=== PATIENT | male | born 1965 ===

== ENCOUNTER 2016-09-10 23:53 | Emergency (ER) | payer MEDICAID ==
[2016-09-11] MEDS ORDERED: Lidocaine 1% w Epi 1:100,000 Inj INJ ONE (00:30)
[2016-09-11] MEDS ORDERED: Bacitracin 500 Units/gm Oint Foilpak UD TOP ONE (00:31)
[2016-09-11] MEDS ORDERED: Lidocaine 2% w Epi 1:100,000 Inj IJ ONE (00:34)
[2016-09-11] MEDS ORDERED: Bacitracin 500 Units/gm Oint Foilpak UD ONE (00:34)
--- NOTE | 2016-09-11 01:58 | C.PDOC ---
History Of Present Illness A 51 y/o male c/o laceration to the right arm that occurred DISMANTLER. Pt notes that he was cleaning where he put his arm in a bag and a piece of glass cut him. Pt denies change in sensation, fever, or any other complaints. No other injury. Time Seen by Provider: 09/11/16 00:06 Chief Complaint (Nursing): Abnormal Skin Integrity History Per: Patient History/Exam Limitations: no limitations Onset/Duration Of Symptoms: Hrs Current Symptoms Are (Timing): Still Present Location Of Injury: Right: Arm (Laceration) Quality Of Symptoms: Painful Severity: Mild Recent travel outside of the [place]: No Additional History Per: Patient Past Medical History Reviewed: Historical Data, Nursing Documentation, Vital Signs Vital Signs: Last Vital Signs Temp 98.1 F 09/11/16 03:01 Pulse 90 09/11/16 03:01 Resp 20 09/11/16 03:01 BP 120/78 09/11/16 03:01 Pulse Ox 96 09/11/16 03:36 - Medical History PMH: HTN Family History: States: Unknown Family Hx - Social History Hx Alcohol Use: No Hx Substance Use: No Review Of Systems Except As Marked, All Systems Reviewed And Found Negative. Constitutional: Negative for: Fever, Chills Gastrointestinal: Negative for: Nausea, Vomiting Skin: Positive for: Lesions (Laceration to the right arm). Negative for: Other (Wound discharge) Neurological: Negative for: Numbness, Other (Change in sensation) Physical Exam - Physical Exam Appears: Well, Non-toxic, No Acute Distress Skin: Warm, Dry, Other (4 cm laceration to the dorsol aspect of the right forearm) Head: Atraumatic, Normacephalic Eye(s): bilateral: Normal Inspection, EOMI Nose: Normal Oral Mucosa: Moist Chest: Symmetrical Respiratory: No Accessory Muscle Use Extremity: Normal ROM, Tenderness, Capillary Refill (< 2 sec), No Swelling Extremity: Bilateral: Normal Color And Temperature, Normal ROM Pulses: Left Radial: Normal, Right Radial: Normal Neurological/Psych: Oriented x3, Normal Speech, Normal Cognition, Normal Sensation, Other (No focal deficit) Gait: Steady ED Course And Treatment O2 Sat by Pulse Oximetry: 96 (RA) Pulse Ox Interpretation: Normal Progress Note: Impression: A 51 y/o male c/o laceration to the right arm that occurred DISMANTLER. Plans: Bacitracin, Motrin, Lidocaine, Tetanus, RAD forearm, Reassess. Immediately prior to procedure a "time out" was called to verify the correct patient, procedure and site. Procedure: Wound was anesthetized, cleansed thoroughly, NS irrigation, and explored: No foreign body or deep structure involvement was detected. Entire laceration closed with sutures. Patients condition remained stable throughout Emergency Department evaluation with no evidence of neurologic instability. There is always a risk of undetected foreign body nerve or tendon injury, therefore the importance of close follow-up care was stressed. discussed wound care, signs of infection and followup win 2 days for evaluation. Laceration - Laceration Repair Laceration to the right forearm Wound Length (In cm): 4 Description Of Wound: Linear Wound Cleansed With: Betadine, Sterile Saline Anesthesia: Lidocaine 1%, With Epi Wound Examination: Irrigated With Saline, No FB With Wound Exploration, No Tendon Injury With Wound Exploration Wound Closure: Suture Suture Technique And Material Used: Nylon (Nylon 5-O) Wound Complexity: Simple Disposition - Disposition Referrals: Non [facility] Provider, [Primary Care Provider] - Disposition: HOME/ ROUTINE Disposition Time: 01:56 Condition: STABLE Additional Instructions: wound check in2 days. Suture removal in 10 days. Watch for signs of infection including redness, swelling or discharge. Returnt o ER if symptoms persist or worsen. Prescriptions: Cephalexin [cephalexin] 500 mg PO BID #14 cap Instructions: Laceration (ED) - Clinical Impression Clinical Impression: Laceration of arm - Scribe Statement The provider has reviewed the documentation as recorded by the Scribe Deneen anne All medical record entries made by the Ishanibyvette were at my direction and personally dictated by me. I have reviewed the chart and agree that the record accurately reflects my personal performance of the history, physical exam, medical decision making, and the department course for this patient. I have also personally directed, reviewed, and agree with the discharge instructions and disposition.
[2016-09-11 03:02] VITALS: BP 120/78; PULSE 90; RESP 20; TEMP 98.1
[2016-09-11 03:29] VITALS: O2SAT 96
--- NOTE | 2016-09-11 10:36 | RAD ---
PROCEDURE: Radiographs of the Right Forearm HISTORY: Laceration, r/o fb COMPARISON: None available. TECHNIQUE: Frontal and lateral views obtained. FINDINGS: BONES: No acute fracture or destructive lesion. Bone alignment and mineralization are normal. JOINT SPACES: Unremarkable. OTHER FINDINGS: No radiopaque foreign body. IMPRESSION: No acute fracture or dislocation. No radiopaque foreign body.
== END 2016-09-11 03:00 | disposition home or self-care (01) ==
LOC: C.ER 23:53 → SUPCPDRO 23:53 → C.ER 09-11 03:00
DX: S51.811A Laceration without foreign body of right forearm, initial encounter (principal); W25.XXXA Contact with sharp glass, initial encounter; Y93.E9 Activity, other interior property and clothing maintenance; Y92.009 Unspecified place in unspecified non-institutional (private) residence as the place of occurrence of the external cause